=== PATIENT | female | born 1965 | race Caucasian/White ===

== ENCOUNTER 2017-07-12 19:30 | Emergency (ER) | payer BC ==
[~2017-07-12] VITALS: Ht 160 cm; Wt 52.3 kg
[2017-07-12] MEDS ORDERED: ENDOCET 5-3251 EACH PO (23:42)
[2017-07-12] MEDS ORDERED: MOTRIN600 MG PO (23:42)
[2017-07-13 00:35] VITALS: BP 136/84
== END 2017-07-13 00:53 | disposition home or self-care (01) ==
LOC: EME → EDBD 19:30 → TRA 19:30
DX: S62.316A Displaced fracture of base of fifth metacarpal bone, right hand, initial encounter for closed fracture (principal); S02.612A Fracture of condylar process of left mandible, initial encounter for closed fracture; S01.511A Laceration without foreign body of lip, initial encounter; S61.411A Laceration without foreign body of right hand, initial encounter; V18.4XXA Pedal cycle driver injured in noncollision transport accident in traffic accident, initial encounter; Y93.55 Activity, bike riding; S50.312A Abrasion of left elbow, initial encounter; S01.81XA Laceration without foreign body of other part of head, initial encounter; Z23 Encounter for immunization
CPT/HCPCS: 70486; 73110; 73130; 99281; 99285